=== PATIENT | female | born 1970 | race Caucasian/White ===

== ENCOUNTER → 2018-05-28 13:31 | Outpatient (CLI) | payer OTHER, SELFPAY ==
[2018-05-28 17:20] LABS: Chlamydia Trachomatis by PCR Negative (Negative); Neisserai gonorrhoeae by PCR Negative (Negative); Probe Check PASS; Sample Adequacy Control PASS; Specimen Processing Control PASS
[2018-06-06 12:06] LABS: HPV Reflexed? NOT INDICATED
== END ==
PROVIDERS: Visit Provider Obstetrics & Gynecology
DX: Z12.4 Encounter for screening for malignant neoplasm of cervix (principal); Z11.3 Encounter for screening for infections with a predominantly sexual mode of transmission
CPT/HCPCS: 87491; 87591; 88175; G0145

== ENCOUNTER → 2018-07-01 16:44 | Outpatient (CLI) | payer OTHER, SELFPAY ==
[2018-07-01 17:34] LABS: Absolute Lymphocyte Count 2.05 X10^3/ul (0.83-4.51); Basophil# 0.02 X10^3/uL; Basophil% 0.2 % (0-1); Eosinophil# 0.09 X10^3/uL; Hematocrit 40.9 % (37-47); Lymphocyte # 2.05 X10^3/ul (4.0); Lymphocyte % 22.6 % (19-41); Mean Corp Hgb Conc 34.2 g/gl (32-36); Mean Corpuscular Hgb 29.5 pg (27.0-32.0); Mean Corpuscular Volume 86.3 fL (81-99); Mean Platelet Vol. 9.2 fl (6.2-12.0); Monocyte# 0.88 X10^3/uL; Monocyte% 9.7 % (0-10); Neutrophil # 5.99 X10^3/uL (2.7-7.7); Neutrophil % 66.2 % (47-70); Platelet Count 256 K/mm3 (150-450); RBC Distribution Width CV 14.1 % (11.6-14.6); Red Blood Count 4.74 M/mm3 (4.2-5.4); White Blood Count 9.1 K/mm3 (4.4-11.0)
[2018-07-01 17:35] LABS: POSITIVE COUNT NO; POSITIVE DIFFERENTIAL NO; POSITIVE MORPHOLOGY NO
[2018-07-01 18:08] LABS: Hemoglobin A1c 5.5 % (4.2-6.3)
[2018-07-01 18:21] LABS: Thyroid Stim Hormone (TSH) 2.91 uIU/mL (0.358-3.74)
[2018-07-01 18:49] LABS: Color, Urine Yellow (Yellow); Glucose, Dipstick Normal (Normal); Ketone-Dipstick 5 mg/dl (Negative); Leukocyte Esterase-Dipstick Negative /ul (Negative); Nitrite-Dipstick Negative (Negative); Occult Blood-Urine 10 /ul (Negative); Protein-Dipstick Negative (Negative); Specific Gravity, Urine 1.015 (1.002-1.030); Urine Bilirubin Dipstick Negative (Negative); Urine Clarity Sl. Cloudy (Clear); Urine Urobilinogen Normal (Normal); Urine pH 6.5 (5.0 - 8.0)
[2018-07-01 19:30] LABS: Amphetamine Urine VISTA NEGATIVE (<1000 ng/mL); Barbiturate Urine VISTA NEGATIVE (< 200 ng/mL); Benzodiazepine Urine VISTA NEGATIVE (< 200 ng/mL); Cocaine Urine VISTA NEGATIVE (< 300 ng/mL); Ecstacy Urine VISTA NEGATIVE (< 500 ng/mL); Methadone Urine VISTA NEGATIVE (< 300 ng/mL); PCP Urine VISTA NEGATIVE (< 25 ng/mL); THC Urine VISTA NEGATIVE (< 50 ng/mL); Vista UDS pH Range 6
[2018-07-02 09:38] LABS: HIV - WCH Non-Reactive (Nonreactive); Rubella IgG 21.3 IU/mL
[2018-07-03 13:42] LABS: HEPATITIS B SURFACE AG Negative (Negative); Hep C Antibodies <0.1 s/co ratio (0.0-0.9)
[2018-07-04 02:59] LABS: Prenatal RPR NONREACTIVE (NONREACTIVE)
== END ==
PROVIDERS: Visit Provider Obstetrics & Gynecology
DX: Z34.81 Encounter for supervision of other normal pregnancy, first trimester (principal)
CPT/HCPCS: 36415; 80307; 81002; 83036; 84443; 85025; 86703; 86762; 86803; 87340

== ENCOUNTER → 2018-07-29 16:07 | Outpatient (CLI) | payer OTHER, SELFPAY ==
[2018-07-29 17:16] LABS: Hematocrit 35.7 % (37-47); Hemoglobin 11.9 g/dl (12.0-15.0); Mean Corp Hgb Conc 33.3 g/gl (32-36); Mean Corpuscular Hgb 29.2 pg (27.0-32.0); Mean Corpuscular Volume 87.5 fL (81-99); Mean Platelet Vol. 9.4 fl (6.2-12.0); Platelet Count 225 K/mm3 (150-450); RBC Distribution Width CV 14.2 % (11.6-14.6); RBC Distribution Width SD 45.3 fl (35.1-43.9); Red Blood Count 4.08 M/mm3 (4.2-5.4); White Blood Count 10.2 K/mm3 (4.4-11.0)
[2018-07-29 17:27] LABS: Partial Thromboplast Time 25.3 Seconds (24.1-36.2); Prothrombin Time (Protime)PT. 13.3 SECONDS (11.7-14.9)
[2018-07-29 17:31] LABS: Scan Indicated on CBC? Y/N NO
[2018-07-29 17:58] LABS: AST(SGOT) 14 U/L (15-37); Alanine Aminotransfer ALT/SGPT 25 U/L (13-56); Creatinine, Serum 0.54 mg/dL (0.55-1.02); EST Glomerular Filtration Rate 128 mL/min (>60); Est Glom Filt Rate - Afr Amer 155 mL/min (>60); Uric Acid 3.5 mg/dL (2.6-6.0)
== END ==
PROVIDERS: Visit Provider Obstetrics & Gynecology
DX: O16.9 Unspecified maternal hypertension, unspecified trimester (principal); Z3A.00 Weeks of gestation of pregnancy not specified
CPT/HCPCS: 36415; 82565; 84450; 84460; 84550; 85027; 85610; 85730

== ENCOUNTER → 2018-08-02 09:30 | Outpatient (CLI) | payer OTHER, SELFPAY ==
[2018-08-02 10:41] LABS: 24HR. UA Prot. Total Volume 3450 mL
[2018-08-02 10:51] LABS: Urine Protein (24 Hour) < 6.0 mg/dL (<11.9)
== END ==
PROVIDERS: Visit Provider Obstetrics & Gynecology
DX: O16.9 Unspecified maternal hypertension, unspecified trimester (principal); Z3A.00 Weeks of gestation of pregnancy not specified

== ENCOUNTER → 2018-09-29 13:37 | Outpatient (CLI) | payer OTHER, SELFPAY ==
[2018-09-29 15:56] LABS: Hematocrit 31.1 % (37-47); Hemoglobin 10.3 g/dl (12.0-15.0); Mean Corp Hgb Conc 33.1 g/gl (32-36); Mean Corpuscular Hgb 29.6 pg (27.0-32.0); Mean Corpuscular Volume 89.4 fL (81-99); Mean Platelet Vol. 9.1 fl (6.2-12.0); Platelet Count 244 K/mm3 (150-450); RBC Distribution Width CV 14.6 % (11.6-14.6); Red Blood Count 3.48 M/mm3 (4.2-5.4); White Blood Count 9.5 K/mm3 (4.4-11.0)
[2018-09-29 16:04] LABS: Glucose Challenge Gest 1H 50g 191 mg/dL (70-140)
[2018-09-29 16:10] LABS: Scan Indicated on CBC? Y/N NO
== END ==
PROVIDERS: Visit Provider Obstetrics & Gynecology
DX: Z34.82 Encounter for supervision of other normal pregnancy, second trimester (principal)
CPT/HCPCS: 36415; 82950; 85027

== ENCOUNTER → 2018-12-01 13:02 | Outpatient (CLI) | payer OTHER, SELFPAY ==
[2018-12-01 13:40] LABS: Hematocrit 38.2 % (37-47); Hemoglobin 12.6 g/dl (12.0-15.0); Mean Platelet Vol. 9.1 fl (6.2-12.0); Platelet Count 256 K/mm3 (150-450); RBC Distribution Width CV 14.9 % (11.6-14.6); RBC Distribution Width SD 48.2 fl (35.1-43.9); White Blood Count 13.3 K/mm3 (4.4-11.0)
[2018-12-01 13:42] LABS: Scan Indicated on CBC? Y/N NO
[2018-12-01 13:49] LABS: Protein, Urine (Random) 37.2 mg/dL (<11.9); Protein:Creat Ratio 590 mg/g CRE (0-200)
[2018-12-01 14:10] LABS: ALB/GLOB Ratio 0.5 RATIO (0.9-2.4); AST(SGOT) 14 U/L (15-37); Alanine Aminotransfer ALT/SGPT 18 U/L (13-56); Albumin, Serum 2.6 g/dL (3.2-5.0); Alkaline Phosphatase 97 U/L (45-117); Anion Gap 9 (5-15); BUN 13 mg/dL (7-18); Calcium,Total 8.9 mg/dL (8.5-10.1); Chloride 111 mmol/L (98-107); Creatinine, Serum 0.52 mg/dL (0.55-1.02); EST Glomerular Filtration Rate 135 mL/min (>60); Est Glom Filt Rate - Afr Amer 163 mL/min (>60); Globulin 4.8 g/dL (2.2-4.2); Glucose 69 mg/dL (74-106); LDH 163 U/L (84-246); Potassium 3.9 mmol/L (3.5-5.1); Protein, Total 7.4 g/dL (6.4-8.2); Sodium Level 138 mmol/L (136-145); Uric Acid 3.4 mg/dL (2.6-6.0)
== END ==
PROVIDERS: Referring Provider Obstetrics & Gynecology Maternal & Fetal Medicine; Visit Provider Obstetrics & Gynecology Maternal & Fetal Medicine
DX: O10.013 Pre-existing essential hypertension complicating pregnancy, third trimester (principal)
CPT/HCPCS: 36415; 80053; 82570; 83615; 84156; 84550; 85027

== ENCOUNTER → 2018-12-08 11:47 | Outpatient (CLI) | payer OTHER, SELFPAY ==
[2018-12-08 12:27] LABS: Hematocrit 36.7 % (37-47); Mean Corp Hgb Conc 32.7 g/gl (32-36); Mean Corpuscular Hgb 29.3 pg (27.0-32.0); Mean Corpuscular Volume 89.5 fL (81-99); Platelet Count 249 K/mm3 (150-450); RBC Distribution Width CV 14.8 % (11.6-14.6); RBC Distribution Width SD 48.1 fl (35.1-43.9); White Blood Count 12.3 K/mm3 (4.4-11.0)
[2018-12-08 12:28] LABS: Scan Indicated on CBC? Y/N NO
[2018-12-08 12:36] LABS: Protein, Urine (Random) 40.4 mg/dL (<11.9)
[2018-12-08 13:50] LABS: ALB/GLOB Ratio 0.5 RATIO (0.9-2.4); AST(SGOT) 12 U/L (15-37); Alanine Aminotransfer ALT/SGPT 19 U/L (13-56); Albumin, Serum 2.5 g/dL (3.2-5.0); Alkaline Phosphatase 111 U/L (45-117); Anion Gap 13 (5-15); BUN 12 mg/dL (7-18); BUN/Creat Ratio 24.6 RATIO (10-20); Calcium,Total 8.7 mg/dL (8.5-10.1); Chloride 108 mmol/L (98-107); Creatinine, Serum 0.49 mg/dL (0.55-1.02); EST Glomerular Filtration Rate 146 mL/min (>60); Est Glom Filt Rate - Afr Amer 176 mL/min (>60); Globulin 4.6 g/dL (2.2-4.2); Glucose 94 mg/dL (74-106); LDH 165 U/L (84-246); Potassium 4.1 mmol/L (3.5-5.1); Protein, Total 7.1 g/dL (6.4-8.2); Sodium Level 138 mmol/L (136-145); Uric Acid 3.6 mg/dL (2.6-6.0)
== END ==
PROVIDERS: Referring Provider Obstetrics & Gynecology Maternal & Fetal Medicine; Visit Provider Obstetrics & Gynecology Maternal & Fetal Medicine
DX: O10.013 Pre-existing essential hypertension complicating pregnancy, third trimester (principal); Z3A.00 Weeks of gestation of pregnancy not specified
CPT/HCPCS: 36415; 80053; 82570; 83615; 84156; 84550; 85027

== ENCOUNTER 2018-12-12 19:59 | Outpatient (CLI) | payer OTHER, SELFPAY ==
[2018-12-12 21:09] VITALS: BMI 47.6
--- NOTE | 2018-12-13 08:29 | OB.TRI.NOTE ---
History of Present Illness Date of Service: 12/12/18 Was patient seen by the physician?: No Reason For Visit: R/O LABOR Date of Service: 12/12/18 Final SUKHI: 01/06/19 Final SUKHI Source: US <20 weeks Gestational age: 36 Weeks and 4 Days History of Present Illness: Reports decreased movement. Allergies No Known Allergies Allergy (Verified 10/19/13 10:14) Physical Exam General: Alert, Oriented x3, Cooperative, No apparent distress Lungs: Clear to auscultation, Normal air movement Abdomen: Soft, Non Tender, Non-Distended, Gravid, Appropriate for Gestational Age Estimated gestational size: Appropriate for gestational size Presentation: Cephalic NST - FHR Rate Baby A Baseline: 120-130s Variability:: Moderate Accelerations:: 15 x 15 Decelerations:: None NST Reactive:: Yes, Appropriate for gestational age FHR Category:: Category I Uterine Activity:: none Impression/Plan Reassuring heart rate tracing. No signs of labor. Blood pressure modestly elevated on admission but resolved to normal levels over course of her stay. No signs of preeclampsia.
== END 2018-12-12 21:35 | disposition home or self-care (01) ==
LOC: WPOUT 20:01 → WP 20:06
PROVIDERS: Visit Provider Obstetrics & Gynecology
DX: O36.8130 Decreased fetal movements, third trimester, not applicable or unspecified (principal); R03.0 Elevated blood-pressure reading, without diagnosis of hypertension; Z3A.36 36 weeks gestation of pregnancy
CPT/HCPCS: 59025; 59050; 99218; G0378

== ENCOUNTER 2018-12-16 05:00 | Inpatient (IN) | payer OTHER, SELFPAY ==
[2018-12-16] VITALS (23 sets, daily range): BP systolic 116–142; BP diastolic 58–84; PULSE 101–115; RESP 12–22; TEMP 36.3–37; O2SAT 95–100; BMI 48.2
[2018-12-16] MEDS: Lactated Ringers 1,000 ML 999 ML IV (05:55)
[2018-12-16 05:56] LABS: Bedside Glucose 78 mg/dL (70-110)
[2018-12-16 06:29] LABS: Absolute Lymphocyte Count 1.63 X10^3/ul (0.83-4.51); Absolute Neutrophil Count 8.1 X10^3/uL (2.0-7.7); Basophil# 0.03 X10^3/uL; Basophil% 0.3 % (0-1); Eosinophils% 0.9 % (0-5); Hemoglobin 11.6 g/dl (12.0-15.0); Lymphocyte # 1.63 X10^3/ul (4.0); Lymphocyte % 14.6 % (19-41); Mean Corp Hgb Conc 33.1 g/gl (32-36); Mean Corpuscular Hgb 29.9 pg (27.0-32.0); Mean Corpuscular Volume 90.2 fL (81-99); Mean Platelet Vol. 9.3 fl (6.2-12.0); Monocyte# 1.26 X10^3/uL; Monocyte% 11.3 % (0-10); Neutrophil # 8.07 X10^3/uL (2.7-7.7); Neutrophil % 72.1 % (47-70); POSITIVE COUNT NO; POSITIVE DIFFERENTIAL NO; POSITIVE MORPHOLOGY NO; Platelet Count 246 K/mm3 (150-450); RBC Distribution Width CV 14.7 % (11.6-14.6); RBC Distribution Width SD 47.3 fl (35.1-43.9); Red Blood Count 3.88 M/mm3 (4.2-5.4); White Blood Count 11.2 K/mm3 (4.4-11.0)
[2018-12-16 06:32] LABS: Partial Thromboplast Time 26.2 Seconds (24.1-36.2); Prothrombin Time (Protime)PT. 13.3 SECONDS (11.7-14.9)
[2018-12-16] MEDS: Lactated Ringers 1,000 ML 150 ML IV (06:55)
[2018-12-16] MEDS: Sodium Citrate/Citric Acid 30 ML UDC PO (07:15)
[2018-12-16] MEDS: Oxytocin 30 units/NS 500 ml 30 UNITS/500 ML IV.SOLN 167 UNITS IV (07:57)
--- NOTE | 2018-12-16 08:31 | PCM.OPRPT ---
Delivery Classification: Scheduled Final SUKHI: 01/06/19 Gestational age: 37 Weeks and 0 Days Indications: Chronic HTN, gestational diabetes, 37 wk EGA H/O prior term loss at 39 wks Sterilization request Indications for : Repeat Elective , Desires elective sterilization Description of Procedure: Findings: At amniotomy, clear fluid was noted. Flores viable male in vertex presentation. Apgars 9/9, Baby weight: 8# 1 oz There was a normal appearing uterus, fallopian tubes and ovaries bilaterally. There were minimal filmy adhesions between the bladder and lower uterine segment. Filmy adhesion between fundus / small serosal fibroid and parietal peritoneum Several serosal fibroids were noted at the anterior lower uterine segment. PATH: Routine cord gases were sent. Placenta and bilateral fallopian tube segments to pathology Narrative account: After the risks, benefits and alternatives of the procedure were reviewed with the patient, informed consent was obtained. The patient was taken to the Operating room with an IV running, and placed in a seated position on the operating table for placement of the spinal. Once the spinal had been administered, she was briefly frog-legged for Macias catheter placement, and then repositioned to dorsal supine position with leftward displacement of the uterus, and prepped and draped in the usual sterile fashion with tissue retention straps to expose the lower abdomen. Once the spinal was deemed adequate, a Pfannenstiel skin incision was created using the knife (through the prior skin incision scar). The incision was carried down to the rectus fascia using the knife. The fascia was nicked in the midline. The fascial incision was extended bilaterally using curved Aquino scissors. The superior aspect of the fascial incision was grasped with Vanna clamps and tented up and the underlying rectus abdominal muscles were dissected free. In a similar manner, the inferior aspect of the facial incision was grasped with Vanna clamps tented up and the underlying rectus abdominal muscles were dissected free. The rectus abdominis muscles were in the midline and the peritoneum was identified and entered by blunt dissection high in the incision. The peritoneum was stretched laterally, a band of peritoneum was divided (adhesion noted from parietal peritoneum to uterine fundus) and a bladder blade was inserted. A bladder flap was created along the lower uterine segment with Metzenbaum scissors . The uterine incision was then created using Metzenbaum scissors. The operators fingertips were used to extend the uterine incision by blunt dissection in a caudad- cephalad orientation . Clear fluid was noted at amniotomy. The vertex was then delivered atraumatically through the incision with the aid of Kiwi vacuum extraction. Nuchal cord x one was reduced. The shoulders delivered easily . The OP and nares were bulb suctioned on the abdomen. The cord clamped x two and cut. And the was handed off to the nurse awaiting delivery after briefly showing him to his parents. The baby had a spontaneous, vigorous cry. The placenta was then delivered. The uterus was exteriorized and cleared of clots and debris . The uterine incision was repaired with 1 Vicryl in a running locked fashion. A second imbricating layer was then placed, using 1 Monocryl in running nonlocked fashion. Bovie cautery was used to treat any bleeding areas . Excellent hemostasis was noted. Of note there were several 3-4 cm serosal fibroids noted to the R side of the uterus, superior to the uterine incision BILATERAL PARTIAL SALPINGECTOMY. The R fallopian tube was grasped at a relatively avascular midportion with Patricia clamp and tented up. A window was created in the Mesosalpinx with Bovie cautery and the proximal and distal ends of the fallopian tube at the window were free tied with a catgut suture. The Fallopian tube was further tented up and a ligature was placed inferior to the other two free ties. The segment of the fallopian tube tied off was then amputated with Metzenbaum scissors and set aside for later pathology review. The tubal stumps were Bovie cauterized for hemostasis. Excellent hemostasis was noted. The procedure was performed similarly at the L fallopian tube. The tubal segments excised were set aside for pathology review. At this point the uterus was returned to the abdominal cavity. The gutters were cleared of clots and debris and the incision at the uterus was inspected. Karli was applied along the entire incision for continued hemostasis. Excellent hemostasis was noted. The peritoneal edges were reapproximated in the midline with a continuous suture of 1 Vicryl. Karli was applied to this layer. Excellent hemostasis was noted at the subfascial space Karli was dusted over this layer as well. The fascia was closed in a running nonlocked fashion with a Stratofix. The Subcutaneous fatty tissue was Bovie cauterized as needed for hemostasis. Karli was liberally dusted at this layer to prevent seroma formation. This layer was then reapproximated in a two layer closure of running 3-0 Vicryl to eliminate space. The skin edges were closed in a Subcuticular stitch of 4-0 Monocryl. The incision was cleansed. Cavilon, Steristrips, and Mepilex dressing were applied to the skin . The patient was then transferred to the recovery room bed in stable condition after tolerating the procedure well. Sponge, lap, needle and instrument counts correct times two. Medications given preop and intraoperatively included: Ancef 2 gm given business solution analyst to the operating room. The patient also received Pitocin given IV after cord clamp, and Toradol 30 mg IV times one. For a complete listing of medications given preop and intraoperatively, please see the anesthesia record. Amniotic Membrane Rupture Type: Artificial Amniotic Fluid Description: Clear Specimen(s) sent to pathology: placenta, bilateral fallopian tube segments Drain: Macias to straight drain Fluids Replaced: LR Cord Entanglement: Around neck x 1, loose Cord Vessel Description: 3 Vessels Gender: Male (1 minute): 9 (5 minute): 9 Delayed cord clamping: No Pre-op Antibiotic Given: Ancef 2 grams IV x1 Pt instructed on risks of surgery: Bleeding, Anesthesia Risks, Infection, Permanency, Failure Rate of 1 to 2% Complications: None - Admit VTE Documentation VTE Present on Admission: No VTE Mechan Device Prophylaxis: SCD's
[2018-12-16 10:17] LABS: Pathology Specimen OB SEE PATHOLOGY REPORT
[2018-12-16 10:19] LABS: Pathology Specimen OB SEE PATHOLOGY REPORT
--- NOTE | 2018-12-16 10:19 | PLAC_PTH ---
PATIENT: KATERYNA LION LOC: [facility] U#:[id number] AGE/SX: 48/F ROOM: WP007 RE12/16/[address]: Dr. Nanda Boland MD : [id number] BED: 1 DIS: 12/19/2018 SPEC #: [id number] RECD: 12/16/18 10:19 STATUS: NEY RELaurence #: [id number] SANDRA: 12/16/18 10:[address]: Nanda Boland DEPT: SURGICAL PATHOLOGY RECD BY: Barrington Serrato ENTERED: 12/16/18 13:01 SP TYPE: PLACENTA OTHR DR: No Primary Care Phys Tissues: A - Placenta, NOS B - Fallopian tube Procedures: Surgery Specimen Level II Surgery Specimen Level V HEADER OPERATION: section PRE-OP DIAGNOSIS: Diabetes, hypertension TISSUE SUBMITTED: A - Placenta, B - Bilateral fallopian tubes MICROSCOPIC DIAGNOSIS A. Placenta: Placental disc - third trimester placenta (581 gm). - A focal area of fibrinous plaque, maternal surface (1 cm in greatest dimension). Membranes - no pathologic diagnosis. Umbilical cord - three blood vessels, no pathologic diagnosis. B. Bilateral fallopian tubes, tubal ligation: Completely transected segments of bilateral fallopian tubes, no pathologic diagnosis. SJ:susana 12/18/18 MICROSCOPIC DESCRIPTION Slides are reviewed. GROSS DESCRIPTION A - SPECIMEN: PLACENTA / CLINICAL INFORMATION: A. Weight: 3.67 kg B. Gestational Age: 37 weeks C. Sex: Male PLACENTAL WEIGHT (POST FIXATION): 581 gm PLACENTAL DIMENSIONS: 19 x 15 x 3.5 cm PLACENTAL SHAPE: Usual ovoid PLACENTAL WEIGHT FOR GESTATIONAL AGE: Within 10-99th percentile MEMBRANES - Present A. Insertion: Marginal B. Site of rupture from edge: The membranes are fragmented and distance of rupture cannot be assessed. C. Color of membrane: Fung-pena D. Abnormalities: None UMBILICAL CORD - Present A. Color: Fung-pena B. Insertion: Paracentral C. Length: 49 cm D. Diameter: 1.4 cm E. Number of vessels: Three F. Abnormalities: None PLACENTAL DISC - Present A. Color of surface: Fung-pena B. surface abnormalities: None C. Maternal cotyledons: Intact with minimal tears. A few adherent blood clots are noted. The maternal surface also shows a plaque-like area measuring 3 cm in greatest dimension. D. Attached retro placental clot: No clot E. Cut surface: Dark red and spongy F. Lesions: None G. Separate clot: Also present in the container are multiple blood clots measuring in aggregate 10 x 9 x 3 cm and weighing 77 gm. SECTIONS SUBMITTED: 1. Membrane roll 2. Cord, maternal end 3. Cord, end 4. Placental disc, and maternal surfaces, plaque-like lesion 5. Placental disc, and maternal surfaces 6. Placental disc, and maternal surfaces SJ:susana 12/17/18 B - Received is one container labeled with the patient's name and designated bilateral fallopian tubes. The specimen consists of two tubular pieces of pink-fung soft tissue with the right identified with a suture. The right fallopian tube measures 1.5 cm in length and 0.5 cm in diameter and inked black. The left fallopian tube measures 1 cm in length and 0.6 cm in diameter. The entire specimen is submitted in one cassette. Both pieces will be sectioned at the time of embedding. / SJ:susana 12/16/18 TC:5 CPT: 98638 x2, 29036
[2018-12-16 10:41] LABS: Bedside Glucose 134 mg/dL (70-110)
[2018-12-16] MEDS: Lactated Ringers 1,000 ML 100 ML IV ×2 (11:12→21:01)
[2018-12-16] MEDS: Ketorolac 30 MG/ML Syringe IV ×2 (13:13→18:33)
[2018-12-16 19:22] LABS: Bedside Glucose 184 mg/dL (70-110)
[2018-12-16 22:30] LABS: Bedside Glucose 112 mg/dL (70-110)
[2018-12-17] VITALS (8 sets, daily range): BP systolic 124–140; BP diastolic 62–77; PULSE 90–101; RESP 16–22; TEMP 36.2–36.6; O2SAT 94–99
[2018-12-17] MEDS: Ketorolac 30 MG/ML Syringe IV ×4 (00:40→20:19)
[2018-12-17 06:30] LABS: Bedside Glucose 94 mg/dL (70-110)
[2018-12-17 06:52] LABS: Hematocrit 31.3 % (37-47); Hemoglobin 10.2 g/dl (12.0-15.0); Mean Corp Hgb Conc 32.6 g/gl (32-36); Mean Corpuscular Hgb 29.7 pg (27.0-32.0); Mean Platelet Vol. 9.1 fl (6.2-12.0); Platelet Count 217 K/mm3 (150-450); RBC Distribution Width CV 14.9 % (11.6-14.6); RBC Distribution Width SD 47.9 fl (35.1-43.9); Red Blood Count 3.44 M/mm3 (4.2-5.4); White Blood Count 13.3 K/mm3 (4.4-11.0)
[2018-12-17 06:53] LABS: Scan Indicated on CBC? Y/N NO
--- NOTE | 2018-12-17 08:06 | PCM.PN.OB ---
Subjective: POD#1 Repeat C/S and BPS 37 wk chronic HTN, gestational diabetes on Glyburide 5 mg po tid Baby in SCN now due to hypoglycemia. Pt relates glad she had BPS done, stressful . She ate regular diet yesterday including Frosty from [employer] and blood sugars all high. Resumed bid Glyburide yesterday. Fasting this morning WNL. Pain control adequate. Macias in place. has Incentive spirometer to use prn. Nursing. Supplementing baby d/t blood sugars. - Physical Exam General: Alert, Oriented x3, Cooperative, No apparent distress HEENT: Atraumatic Neck: Supple Abdomen: Soft - Fundus firm inferior to umbilicus and tender consistent with postop status. Skin: Incision - Silver mepilex dressing appears CDI. Neurological: Cranial nerves II-XII grossly intact Psych/Mental Status: Normal Affect, Appropriate Vital Signs Temp Pulse Resp BP Pulse Ox 98.6 F 105 H 22 H 124/62 H 96 12/16/18 23:30 12/16/18 23:30 12/17/18 00:00 12/16/18 23:30 12/17/18 00:00 Oxygen Delivery Method Room Air Weight: 135.4 kg Body Mass Index (BMI) 48.2 Intake and Output for Last 24 Hours 12/15/18 12/16/18 12/17/18 23:59 23:59 23:59 Intake Total 5349 / 5349 Output Total 2450 / 2450 Balance 2899 / 2899 Laboratory Tests Past 24 Hrs 12/17/18 06:35 WBC 13.3 H RBC 3.44 L Hgb 10.2 L Hct 31.3 L MCV 91.0 MCH 29.7 MCHC 32.6 RDW 14.9 H RDW Differential 47.9 H Plt Count 217 MPV 9.1 POC Glucose 12/17/18 12/16/18 12/16/18 05:45 21:57 19:10 POC Glucose 94 112 H 184 H 12/16/18 10:24 POC Glucose 134 H Medical Necessity - Tobacco Use Smoking Status: Never smoker Assessment/Plan POD#1 Repeat C/S and BPS Stable postop . Increase diet and activity as tolerated. Begin po meds. S/L IV for continued Toradol. Offer abdominal binder. D/C macias for voiding trial Diabetes. Encouraged diabetic diet Resumed glyburide Encouraged weight loss and increased exercise to help prevent further diabetes, complications from diabetes. HTN Resolved after delivery Continue to observe Inc respiratory rate At risk for sleep apnea Consider screening outpatient.
--- NOTE | 2018-12-17 08:12 | PCM.DCCSEC ---
Discharge Diet: - - diabetic diet Discharge Activity: May not drive while taking narcotic pain medications., May Shower, May Take a Tub Bath Return to work on:: 02/02/19 May resume sexual activity in: 4-6 weeks Lifting Restrictions: 20 pounds Additional Activity Instructions:: Nothing in the vagina for 4-6 weeks. You may return to work/school in 6 weeks. Change Dressing in (Days):: 7 Remove Dressing in (days):: 7 Cleanse incision/area with: Soap & Water, Keep Dressing Clean & Dry Additional Instructions: If you experience any of the following, contact your healthcare provider. Bleeding that soaks a pad every hour for 2 hours Fever 100.4 or higher Unrelieved incision or abdominal pain Swelling, redness, discharge or bleeding from your incision Problems urinating (including inability to urinate or burning while urinating). Visual changes Severe headache Flu-like symptoms Pain or redness in one of both of your breasts Pain, warmth, tenderness or swelling in your legs, especially the calf area Frequent nausea and vomiting Symptoms of depression or anxiety If you experience any of the following, call 911 or go to the nearest Emergency Room. Chest pain Problems breathing Seizure activity Partial or complete paralysis of a body part, slurred speech, weakness or drooping of the face, or a sudden inability to walk or hold your balance Allergies/Adverse Reactions: Allergies No Known Allergies Allergy (Verified 12/16/18 06:05) Medications to take at Discharge Vits [Prenatabs FA ] 1 tablet PO DAILY PRN 10/19/13 Glyburide 5 mg PO TID 12/12/18 Acetaminophen [Tylenol] 1,000 mg PO Q8H PRN tablet 12/17/18 Naproxen [Naprosyn] 250 - 500 mg PO Q8H PRN PRN #30 tab 12/17/18 Oxycodone [Oxyir] 5 - 10 mg PO Q6H PRN PRN 7 Days #20 tab 12/17/18 Senna/Docusate Sodium [Senokot-S] 1 tab PO BID PRN #30 tab 12/17/18 glyBURIDE [Micronase] 5 mg PO BID@0800,2200 tablet 12/17/18 The following prescriptions were given: Oxycodone [Oxyir] 5 - 10 mg PO Q6H PRN PRN 7 Days #20 tab PRN Reason: Mod-Severe Pain (4-07/09) Naproxen [Naprosyn] 250 - 500 mg PO Q8H PRN PRN #30 tab PRN Reason: Mild Pain (1-3) Senna/Docusate Sodium [Senokot-S] 1 tab PO BID PRN #30 tab PRN Reason: Constipation Follow-Up: Call to make an appointment with your doctor for an incision check in 1-2 weeks. You will also need a 6 week post- follow up appointment. Test results from this visit will be discussed in further detail at your follow-up appointment, if applicable. Please Follow Up With: Nanda Boland MD - [phone] When: Call to make an appointment for an incision check in 2 weeks. Primary Care Physician: Care Physician,No Primary [Primary Care Provider] - Proposed Discharge Date: 12/20/18
--- NOTE | 2018-12-17 08:18 | DCINST_ITS ---
Discharge Diet: - - diabetic diet Discharge Activity: May not drive while taking narcotic pain medications., May Shower, May Take a Tub Bath Return to work on:: 02/02/19 May resume sexual activity in: 4-6 weeks Lifting Restrictions: 20 pounds Additional Activity Instructions:: Nothing in the vagina for 4-6 weeks. You may return to work/school in 6 weeks. Change Dressing in (Days):: 7 Remove Dressing in (days):: 7 Cleanse incision/area with: Soap & Water, Keep Dressing Clean & Dry Additional Instructions: If you experience any of the following, contact your healthcare provider. * Bleeding that soaks a pad every hour for 2 hours * Fever 100.4 or higher * Unrelieved incision or abdominal pain * Swelling, redness, discharge or bleeding from your incision * Problems urinating (including inability to urinate or burning while urinating). * Visual changes * Severe headache * Flu-like symptoms * Pain or redness in one of both of your breasts * Pain, warmth, tenderness or swelling in your legs, especially the calf area * Frequent nausea and vomiting * Symptoms of depression or anxiety If you experience any of the following, call 911 or go to the nearest Emergency Room. * Chest pain * Problems breathing * Seizure activity * Partial or complete paralysis of a body part, slurred speech, weakness or drooping of the face, or a sudden inability to walk or hold your balance Allergies/Adverse Reactions: Allergies No Known Allergies Allergy (Verified 12/16/18 06:05) Medications to take at Discharge Vits [Prenatabs FA ] 1 tablet PO DAILY PRN 10/19/13 Glyburide 5 mg PO TID 12/12/18 Acetaminophen [Tylenol] 1,000 mg PO Q8H PRN tablet 12/17/18 Naproxen [Naprosyn] 250 - 500 mg PO Q8H PRN PRN #30 tab 12/17/18 Oxycodone [Oxyir] 5 - 10 mg PO Q6H PRN PRN 7 Days #20 tab 12/17/18 Senna/Docusate Sodium [Senokot-S] 1 tab PO BID PRN #30 tab 12/17/18 glyBURIDE [Micronase] 5 mg PO BID@0800,2200 tablet 12/17/18 The following prescriptions were given: Oxycodone [Oxyir] 5 - 10 mg PO Q6H PRN PRN 7 Days #20 tab PRN Reason: Mod-Severe Pain (4-07/09) Naproxen [Naprosyn] 250 - 500 mg PO Q8H PRN PRN #30 tab PRN Reason: Mild Pain (1-3) Senna/Docusate Sodium [Senokot-S] 1 tab PO BID PRN #30 tab PRN Reason: Constipation Follow-Up: Call to make an appointment with your doctor for an incision check in 1-2 weeks. You will also need a 6 week post- follow up appointment. Test results from this visit will be discussed in further detail at your follow- up appointment, if applicable. Please Follow Up With: Nanda Boland MD - [phone] When: Call to make an appointment for an incision check in 2 weeks. Primary Care Physician: Care Physician,No Primary [Primary Care Provider] - Proposed Discharge Date: 12/20/18
--- NOTE | 2018-12-17 08:26 | NURSING ---
0300-noted splotchy reddened area above mepilex dressing, also noted mild edema to panis area.
[2018-12-17 10:56] LABS: Bedside Glucose 107 mg/dL (70-110)
[2018-12-17] MEDS: Acetaminophen 500 MG Tablet 1000 MG PO (10:58)
[2018-12-17 15:50] LABS: Bedside Glucose 88 mg/dL (70-110)
[2018-12-17] MEDS: oxyCODONE 5 MG Tablet PO (15:52)
[2018-12-17] MEDS: 0.9% Saline Lock 10 ML Syringe IV (20:19)
[2018-12-17 20:41] LABS: Bedside Glucose 98 mg/dL (70-110)
[2018-12-18] MEDS: Acetaminophen 500 MG Tablet 1000 MG PO (00:22)
[2018-12-18] MEDS: 0.9% Saline Lock 10 ML Syringe IV ×2 (02:19→08:04)
[2018-12-18] MEDS: Ketorolac 30 MG/ML Syringe IV ×2 (02:19→08:03)
[2018-12-18 02:20] VITALS: BP 138/77; PULSE 87; RESP 16; TEMP 36.5; O2SAT 97
[2018-12-18] MEDS: oxyCODONE 5 MG Tablet PO ×4 (05:25→19:58)
[2018-12-18 05:35] LABS: Bedside Glucose 80 mg/dL (70-110)
--- NOTE | 2018-12-18 07:58 | PCM.PN.OB ---
Subjective: POD#2 Repeat C/S and BPS. 37 wk chronic HTN, and GDM Sugars improved yesterday on diet and glyburide Baby is in SCN with IV due to hypoglycemic episode, but improving and weaning off IV Pt denies concerns today. No itching. Pain control adquate. Likes Abdominal binder. - Physical Exam General: Alert, Oriented x3, Cooperative, No apparent distress HEENT: Atraumatic Neck: Supple Abdomen: Soft - Dark red erythematous rash, patterned distribution, superior to incision/mepilex. marked with surgical marker. Skin: Incision - Mepilex CDI. Psych/Mental Status: Normal Affect Vital Signs Temp Pulse Resp BP Pulse Ox 97.7 F L 87 16 138/77 H 97 12/18/18 02:20 12/18/18 02:20 12/18/18 02:20 12/18/18 02:20 12/18/18 02:20 Oxygen Delivery Method Room Air Weight: 135.4 kg Body Mass Index (BMI) 48.2 Intake and Output for Last 24 Hours 12/16/12/17/18 12/18/18 23:59 23:59 23:59 Intake Total 5349 / 5349 1473 / 1473 Output Total 2450 / 2450 2250 / 2250 Balance 2899 / 2899 -777 / -777 POC Glucose 12/18/18 12/17/18 12/17/18 05:29 20:33 15:47 POC Glucose 80 98 88 12/17/18 10:53 POC Glucose 107 Medical Necessity - Tobacco Use Smoking Status: Never smoker Assessment/Plan POD#2 Repeat C/S and BPS Stable postop . D/C S/L today. Abdominal binder. Diabetes. Encouraged diabetic diet Resumed glyburide but sugars much better yesterday with diet and Glyburide 5 mg po bid. DEC glyburide to 2.5 mg po bid today. Continue finger sticks. Encouraged weight loss and increased exercise to help prevent further diabetes, complications from diabetes. HTN Resolved after delivery Continue to observe RASH Distinctly patterned rash of uncertain etiology Skin clear beneath Mepilex adhesive. Area marked and will observe Consider topical benadryl or po claritin. Denies itching.
[2018-12-18] MEDS: Senna/Docusate Sodium 1 Tablet PO (08:04)
[2018-12-18 08:32] VITALS: BP 138/78; PULSE 96; RESP 18; TEMP 36.6; O2SAT 97
[2018-12-18] MEDS: glyBURIDE 2.5 MG Tablet PO ×2 (09:48→18:02)
[2018-12-18] MEDS: Prenatal Vits Tablet 1 TABLET PO (11:38)
[2018-12-18 11:41] LABS: Bedside Glucose 96 mg/dL (70-110)
[2018-12-18] MEDS: Naproxen 250 MG Tablet PO (14:21)
[2018-12-18 14:38] VITALS: BP 143/65; PULSE 94; RESP 18; TEMP 36.6; O2SAT 97
[2018-12-18 17:55] LABS: Bedside Glucose 97 mg/dL (70-110)
[2018-12-18 20:15] VITALS: BP 137/73; PULSE 90; RESP 16; TEMP 36.6
[2018-12-18 21:20] LABS: Bedside Glucose 91 mg/dL (70-110)
[2018-12-19 02:15] VITALS: BP 132/68; PULSE 87; RESP 16; TEMP 36.4
[2018-12-19] MEDS: Naproxen 250 MG Tablet PO (02:25)
--- NOTE | 2018-12-19 02:48 | NURSING ---
redness contained with ink lines marker earlier today.
[2018-12-19 06:21] LABS: Bedside Glucose 84 mg/dL (70-110)
[2018-12-19] MEDS: oxyCODONE 5 MG Tablet PO (08:07)
[2018-12-19] MEDS: Hydrocortisone 2.5% Crm 1 APPLIC TOPICAL (08:11)
[2018-12-19 08:15] VITALS: BP 139/76; PULSE 78; RESP 17; TEMP 36.6; O2SAT 99
--- NOTE | 2018-12-19 08:57 | NURSING ---
on assessment, nurse noted redness above Mepilex dressing. Dr. Boland has outlined redness and is aware of the redness. redness is still within outline. This nurse applied hydrocortisone to site for relief for patient.
--- NOTE | 2018-12-19 09:18 | PCM.PN.OB ---
Subjective: POD#3 Repeat C/S and BPS. Doing well Denies itching of incision. Rash stable Spouse states she had this after last C/S also. Breast feeding, pumping. Wants to know if I got the [facility] paperwork. States Dr Choi took it to the [facility]. Wants to go home today if baby is released, but still in SCN but no IV and is stable per pt. Still needs to have circumcision. They need to watch videos, etc. Objective: Sitting up at bedside pumping breasts. - Physical Exam General: Alert, Oriented x3, Cooperative, No apparent distress HEENT: Atraumatic Neck: Supple Skin: Incision - No extension of erythema as marked. No erythema under the mepilex adhesive (likely allergic reaction) Psych/Mental Status: Normal Affect Vital Signs Temp Pulse Resp BP Pulse Ox 97.9 F 78 17 139/76 H 99 / 08:15 12/19/18 08:15 12/19/18 08:15 12/19/18 08:15 12/19/18 08:15 Oxygen Delivery Method Room Air Weight: 135.4 kg Body Mass Index (BMI) 48.2 Intake and Output for Last 24 Hours 03/20/19 //12/19/18 23:59 23:59 23:59 Intake Total 1473 / 1473 Output Total 2250 / 2250 Balance -777 / -777 POC Glucose 03//19 12/18/12/18/18 06:16 21:14 17:50 POC Glucose 84 91 97 12/18/18 11:31 POC Glucose 96 Medical Necessity - Tobacco Use Smoking Status: Never smoker Assessment/Plan POD#3 Repeat C/S and BPS Stable postop . Interested in dischg today IF baby is released. Diabetes. Encouraged diabetic diet Resumed glyburide but sugars much better . D/C glyburide and finger sticks. Plan 2 hr 75 gm GTT at 6 wk pp Encouraged weight loss and increased exercise to help prevent further diabetes, complications from diabetes. RASH Distinctly patterned rash of uncertain etiology Probable allergic rxn. Area marked and will observe Will use topical hydrocortisone. Declined claritin. Denies itching.
--- NOTE | 2018-12-19 09:22 | PN.OBGYN_ITS ---
Subjective: POD#3 Repeat C/S and BPS. Doing well Denies itching of incision. Rash stable Spouse states she had this after last C/S also. Breast feeding, pumping. Wants to know if I got the [facility] paperwork. States Dr Choi took it to the [facility]. Wants to go home today if baby is released, but still in SCN but no IV and is stable per pt. Still needs to have circumcision. They need to watch videos, etc. Objective: Sitting up at bedside pumping breasts. - Physical Exam General: Alert, Oriented x3, Cooperative, No apparent distress HEENT: Atraumatic Neck: Supple Skin: Incision - No extension of erythema as marked. No erythema under the mepilex adhesive (likely allergic reaction) Psych/Mental Status: Normal Affect Vital Signs Temp Pulse Resp BP Pulse Ox 97.9 F 78 17 139/76 H 99 / 08:15 12/19/18 08:15 12/19/18 08:15 12/19/18 08:15 12/19/18 08:15 Oxygen Delivery Method Room Air Weight: 135.4 kg Body Mass Index (BMI) 48.2 Intake and Output for Last 24 Hours 03/20/19 //12/19/18 23:59 23:59 23:59 Intake Total 1473 / 1473 Output Total 2250 / 2250 Balance -777 / -777 POC Glucose 03//19 12/18/12/18/18 06:16 21:14 17:50 POC Glucose 84 91 97 12/18/18 11:31 POC Glucose 96 Medical Necessity - Tobacco Use Smoking Status: Never smoker Assessment/Plan POD#3 Repeat C/S and BPS Stable postop . Interested in dischg today IF baby is released. Diabetes. Encouraged diabetic diet Resumed glyburide but sugars much better . D/C glyburide and finger sticks. Plan 2 hr 75 gm GTT at 6 wk pp Encouraged weight loss and increased exercise to help prevent further diabetes, complications from diabetes. RASH Distinctly patterned rash of uncertain etiology Probable allergic rxn. Area marked and will observe Will use topical hydrocortisone. Declined claritin. Denies itching.
[2018-12-19] MEDS: Prenatal Vits Tablet 1 TABLET PO (12:46)
[2018-12-19 14:15] VITALS: BP 130/71; PULSE 90; RESP 17; TEMP 36.7; O2SAT 99
--- NOTE | 2018-12-19 15:00 | CASEMGMT ---
Social Work Labor and Delivery Unit Date of intervention: 12.19.2018 Time of intervention: 1345 Presenting situation:?Patient/mother of baby (MOB) with history of 39 week stillbirth loss in September 2013. Delivered a baby boy, Antonio Howard, this admission who was then transferred and admitted to [facility] for issues related to hypoglycemia.? History obtained from:?Medical record and mother of baby (MOB) Samia Howard Educated MOB that this junior copywriter is the director social for the labor and delivery unit at [facility], and for continuity of care of families on the [facility] this junior copywriter also provides social work services to the SC[facility] at [place] ? Household composition:?MOB, father of baby (FOB) Sarwat Howard, with intention for baby boy Antonio to also reside in the home.?? ? Patient's parent/guardian status:?MOB and FOB are . ?MOB is 46 and FOB is 45 years old. MOB denies any history of abuse in this relationship.???Antonio is the first live for the family. ?MOB and FOB had a daughter, Bell, born stillborn at 39 weeks in September of 2013. ? Medical History:?MOB is G2, P0 to 1 after delivery of Antonio. ?? care started at 13 weeks this , and regular thereafter. ?MOB with history of PCOS. ??Baby Antonio was born weighing 8 pounds 1 ounce. ?Apgars 9 and 9 at 1 an 5 minutes of life respectively. ? ? Educational Status:??MOB and FOB are [place] and through the 8th grade as is the norm for this culture. ?MOB is able to read, write, and understand what is read. ? ? Health Care Coverage:?self pay, [facility] ? Financial Status:?FOB works at [employer]. 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 ?Finances are reported?to be adequate. ?? ? Childcare/Caregiver(s):?MOB, FOB, and then help as needed from large family.?? ? Transportation:??Have a horse and buggy; ?Also have a good friend who is mennonite that drives and helped MOB with all appointments during . ? ? Programs/Agencies Involved:?No agency?involvement. 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 ?? ? Behavioral Health Issues:?MOB reports anxiety during this ,?associating?this with stillbirth loss 5 years ago. ?MOB reports has felt much relief with anxiety?since Antonio has been born. ??MOB reports that joined at loss forum after Bell was born, as well as with a group of women locally who had all lost babies. ??MOB reports?this helped to cope. ?No formal counseling or medication after loss of daughter. ??No reports of any drug or alcohol issues. ?MOB does not smoke tobacco either. ??Drug screen in the OBGYN office was negative on 07.01.2018. ? Family Stressors:?MOB admits this was stressful, having much anxiety due to history of loss and wanting to ensure this baby survived. Baby Antonio admitted to [facility], which was not what parents expected?either but also reports?to be thankful that baby has recovered so well during the hospital?stay. ?? ? Support Systems:??FOB and then both MOB and FOB have large families who live within 6 miles. ??MOB reports FOB will be home on the weekend to help and then MOB's sisters will be coming to help out at home. ? ? Assessment Met with MOB in room on the labor and delivery unit at [facility]. ??MOB pleasant and receptive to social work visit. ??MOB reports to have all needed supplies for baby at home going and to have adequate support. ??MOB cried when talking about the loss of first child, the emotions that came up during this , and the relief that has felt since Antonio has been born. ??MOB indicates to have a connection with Antonio, happy to get to take baby home, and looking forward to being a stay at home mother. 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 ??MOB accepting of resource information for [facility] but declines referrals to [facility] or [facility] at this time. ??MOB also accepting of depression packet, including an online support as MOB can access through the smart phone that MOB carries. ?MOB reports to be old order [place], but mor progressive than some as do have cell phones, running water, and electricity through solar panels in the home. ??No concerns identified by nursing staff regarding parents/child bonding or interactions. ??Emotional support and supportive listening offered to MOB this date. ? Plan MOB is discharging from [facility] today. Shahid Alvarez is discharging home also from the [facility]. Community resources provided to the family in case of future need though at this time no needs or referrals are indicated. ? ? No other needs requested or indicated. -SHAHZAD Leon, PATIENT INSURANCE CLERK ?
--- NOTE | 2018-12-20 12:48 | PCM.DC.SUM ---
Discharge Date and Diagnosis Date of Admission: 12/16/18 - 37 wk presents for repeat C/S and BTO Date of Discharge: 12/19/18 - S/P repeat C/S and bilateral partial salpingectomy Hospital Course and Treatment Operations: - - Repeat C/s and bilateral partial salpingectomy Summary of Care Provided: The patient is a 48 year old at 37 wks EGA, with h/o prior C section delivery of a 39 wk demise. She has chronic HTN and gestational diabetes and has been on Procardia XL 90 mg po daily and on Glyburide 5 mg po tid. She has been followed by [facility] as well as by myself. She presents for a planned, scheduled repeat C/S delivery and bilateral partial salpingectomy. She was admitted to the hospital for the procedure. The procedure was uncomplicated and resulted in the delivery of an 8# 1 oz male Ap . Postoperative course has been uneventful except for high blood sugars on the day of her delivery. These resolved and as blood sugars normalized, Glyburide was weaned and discontinued. Finger sticks were discontinued. A 6 wk 2 hr postprandial screen for diabetes is planned. HTN: patient's blood pressure was only mildly elevated postoperatively, and the Procardia was discontinued. Preoperative Hgb 11.6 g/dl. Dec to 10.2 gm/dl postop day #1 AFEB and VSS. Incision developed an allergic, contact type rash in an irregular pattern (without further extension) by POD#2. Pt and spouse state that she had a similar reaction after her first delivery also. The Mepilex appears CDI and the skin beneath the Mepilex adhesive is normal appearing and without erythema. Patient is discharged home on POD#3 to follow up in office in 2 wks for planned postoperative exam, prn sooner. - Physical Exam Vital Signs Temp Pulse Resp BP Pulse Ox 98.0 F 90 17 130/71 H 99 12/19/18 14:15 12/19/18 14:15 12/19/18 14:15 12/19/18 14:15 12/19/18 14:15 Oxygen Delivery Method Room Air Weight: 135.4 kg Body Mass Index (BMI) 48.2 Discharge Diet: - - diabetic diet Discharge Activity: May not drive while taking narcotic pain medications., May Shower, May Take a Tub Bath Return to work on:: 02/02/19 May resume sexual activity in: 4-6 weeks Additional Activity Instructions:: Nothing in the vagina for 4-6 weeks. You may return to work/school in 6 weeks. Change Dressing in (Days):: 7 Remove Dressing in (days):: 7 Cleanse incision/area with: Soap & Water, Keep Dressing Clean & Dry Home Medications: Medications to take at Discharge RX: Vits [Prenatabs FA ] 1 tablet PO DAILY PRN 10/19/13 Glyburide 5 mg PO TID 12/12/18 RX: Acetaminophen [Tylenol] 1,000 mg PO Q8H PRN tablet 12/17/18 RX: Naproxen [Naprosyn] 250 - 500 mg PO Q8H PRN PRN #30 tab 12/17/18 RX: Oxycodone [Oxyir] 5 - 10 mg PO Q6H PRN PRN 7 Days #20 tab 12/17/18 RX: Senna/Docusate Sodium [Senokot-S] 1 tab PO BID PRN #30 tab 12/17/18 RX: glyBURIDE [Micronase] 5 mg PO BID@0800,2200 tablet 12/17/18 RX: Hydrocortisone 2.5% Crm [Hytone] 1 applic TOPICAL TID PRN PRN #1 tube 12/19/18 Following Prescrptions Were Given to Patient: RX: Oxycodone [Oxyir] 5 - 10 mg PO Q6H PRN PRN 7 Days #20 tab PRN Reason: Mod-Severe Pain (4-10/10) RX: Naproxen [Naprosyn] 250 - 500 mg PO Q8H PRN PRN #30 tab PRN Reason: Mild Pain (1-3/10) RX: Hydrocortisone 2.5% Crm [Hytone] 1 applic TOPICAL TID PRN PRN #1 tube PRN Reason: Rash/Topical Irritation RX: Senna/Docusate Sodium [Senokot-S] 1 tab PO BID PRN #30 tab PRN Reason: Constipation Primary Care Physician: Care Physician,No Primary [Primary Care Provider] - Please Follow Up With: Nanda Boland MD When: Call to make an appointment for an incision check in 2 weeks. Medical Necessity - Tobacco Use Smoking Status: Never smoker Meaningful Use Info Meaningful Use Diagnoses (Choose all that apply): None applicable
--- NOTE | 2018-12-24 19:36 | NURSING ---
Follow up phone call done and patient denies needs at ths time.Currently supplemeting but states breatfeeding is going well and hopes to after seeing on Saturday can dc supplement. Was satisfied with care
== END 2018-12-19 14:15 | disposition home or self-care (01) | DRG 784 ==
PROVIDERS: Admitting Provider Obstetrics & Gynecology; Referring Provider Obstetrics & Gynecology; Visit Provider Obstetrics & Gynecology
PROC: 10D00Z1 Extraction of Products of Conception, Low, Open Approach (ICD-10-PCS; CPT 59514; principal; 2018-12-16 07:15)
DX: O34.211 Maternal care for low transverse scar from previous cesarean delivery (principal); O10.92 Unspecified pre-existing hypertension complicating childbirth; N85.8 Other specified noninflammatory disorders of uterus; Z3A.37 37 weeks gestation of pregnancy; Z37.0 Single live birth; O24.425 Gestational diabetes mellitus in childbirth, controlled by oral hypoglycemic drugs; Z30.2 Encounter for sterilization; O69.81X0 Labor and delivery complicated by cord around neck, without compression, not applicable or unspecified; R21 Rash and other nonspecific skin eruption
CPT/HCPCS: 82962; 85025; 85027; 85610; 85730; 86850; 86900; 88302; 88307; 99218; J7120; A4216; G0378; J2405